=== PATIENT | male | born 1985 | race Hispanic/Latino ===

== ENCOUNTER 2022-03-29 11:58 | Day surgery (SDC) | payer BC ==
[2022-03-28 12:00] LABS: SARS-CoV-2 Antigen Rapid Res Negative (Negative)
[2022-03-29] MEDS ORDERED: CEFAZOLIN 2 GM IN 0.9% NACL 2 GM/100 ML BAG ONE (12:33)
[2022-03-29] MEDS ORDERED: Ringers Lactate 1,000 ML IV ONE (12:33)
[2022-03-29] MEDS ORDERED: CELECOXIB 100 MG CAPSULE ONE (12:37)
[2022-03-29] MEDS ORDERED: ACETAMINOPHEN 500 MG TAB ONE (12:37)
[2022-03-29] MEDS ORDERED: FENTANYL CITR 250 MCG/5 ML ONE (13:24)
[2022-03-29] MEDS ORDERED: LIDOCAINE 1% MPF 5 ML VIAL ONE (13:24)
[2022-03-29] MEDS ORDERED: dexAMETHasone 10 MG/ML VIAL ONE (13:24)
[2022-03-29] MEDS ORDERED: propofoL 200 MG/20 ML VIAL IV ONE (13:24)
[2022-03-29] MEDS ORDERED: MIDAZOLAM HCL 2 MG/2 ML INJ ONE (13:24)
[2022-03-29] MEDS ORDERED: BUPIVACA 0.5%/EPI 0.0005%/PF 30 ML VIAL ONE (13:42)
[2022-03-29] MEDS ORDERED: SODIUM HYPOCHLORITE 0.25% 473 ML ONE (14:18)
[2022-03-29] MEDS ORDERED: GLYCOPYRROLATE 0.2 MG/ML SYR ONE (14:28)
--- NOTE | 2022-03-29 14:35 | P.OP ---
Preoperative diagnosis: Infected epidermal inclusion cyst to fascia Postoperative diagnosis: Infected epidermal inclusion cyst to fascia Primary procedure: Excisional Debridement of Infected epidermal inclusion cyst to fascia Anesthesia: GETA + Local Estimated blood loss: <5cc Specimen: debridement tissue Findings: 5cm x 7cm to fascia Complications: None Transferred to: Recovery Room Condition: Good
[2022-03-29] MEDS ORDERED: KETOROLAC 30 MG/ML INJ ONE (14:36)
[2022-03-29] MEDS: HYDROMORPHONE HCL 1 MG/ML INJ ONE ×4 (14:55→15:16)
[2022-03-29 15:35] VITALS: BP 126/62; TEMP 96.4; O2SAT 100
--- NOTE | 2022-03-30 01:05 | OP ---
Date of Procedure: 03/29/2022 Surgeon: Jonah Camara MD, Preoperative Diagnosis: Infected epidermal inclusion cyst extending to the fascia of the upper centr al back. Postoperative Diagnosis: Infected epidermal inclusion cyst extending to the fascia of the upper cent ral back. Procedure Performed: Excisional debridement of infected epidermal inclusion cyst extending to the fa scia. Anesthesia: General endotracheal plus local 0.5% Marcaine with epinephrine. Estimated Blood Loss: Less than 5 cc. Specimen: Debridement tissue. Findings: 5 cm x 7 cm epidermal inclusion cyst extending to the fascia. Complications: None. Disposition: The patient was transferred to the recovery room in good condition. Procedure In Detail: After informed was obtained, the patient was brought to the operating room, and prepped draped in the usual sterile fashion. After adequate anesthesia was achieved, an area of the upper central back was anesthetized with 0.5% Marcaine with epinephrine. A curvilinear incision was made around the punctate opening where epidermal inclusion cyst type material was emanating with abs cess material. I dissected circumferentially down through the subcutaneous tissues after making an e lliptical incision for approximately 5 cm x 6 cm down to the subcutaneous tissues. Electrocautery wa s then used to dissect circumferentially around to include the entire epidermal inclusion cyst, was f ound to be intact with evidence of previous rupture at the skin level. After this was removed with e lectrocautery, it was sent off for pathologic examination, extended all way to the level of the fasci a. The area was copiously irrigated. Hemostasis was achieved with electrocautery. The wound, after being irrigated copiously and dried, it was packed with Kerlix soaked in 0.25% Dakin solution and a sterile dressing was placed over top. The patient tolerated the procedure without evidence of compli cation and transferred to PACU in good condition. All counts were correct at the end of the case. TK/MODL Voice ID: [id number] Report ID: [id number]
== END 2022-03-29 16:04 | disposition home or self-care (01) ==
LOC: OR 11:58
PROVIDERS: ATTEND Surgery
PROC: 0JB70ZZ Excision of Back Subcutaneous Tissue and Fascia, Open Approach (ICD-10-PCS; principal; 2022-03-29 14:30)
DX: L72.0 Epidermal cyst (principal); Z20.822 Contact with and (suspected) exposure to COVID-19
CPT/HCPCS: 36415; 88304; 87811; 11406; J2704; J2250; J3010; J1100; J1170 ×2; J0690; J7120